=== PATIENT | male | born 1935 | race Caucasian/White ===

== ENCOUNTER → 2016-09-27 10:18 | Outpatient (CLI) | payer MEDICARE, BC ==
[2014-12-11 08:38] VITALS: BMI 30.7
[~2016-09-27 10:18] MED LIST: ACTOS15 MG PO; ADVAIR 250/501 DISK INH; CALTRATE 600 M600 M1 PO; EXELON1 PATCH .1 TRANSDERM; FLAGYL500 MG PO; FLORAJEN3 CAPS460 MG PO; HYTRIN5 MG PO; IPRAT-ALBUT 0.5-3 ML INH; LEVAQUIN750 MG PO; MOBIC7.5 MG PO; OMEGA-3100 MG; PAXIL20 MG PO; PREDNISONE10 MG PO; PRINIVIL20 MG PO; PROTONIX40 MG PO; ZOCOR40 MG PO
== END | disposition home or self-care (01) ==
LOC: D.CT 10:18
DX: F03.90 Unspecified dementia, unspecified severity, without behavioral disturbance, psychotic disturbance, mood disturbance, and anxiety (principal)

== ENCOUNTER 2016-11-11 19:47 | Inpatient (IN) | payer MEDICARE, BC ==
[~2016-11-11] VITALS: Ht 180.3 cm; Wt 90.9 kg
[~2016-11-11 19:47] MED LIST changes: -ADVAIR 250/501 DISK INH; -FLAGYL500 MG PO; -FLORAJEN3 CAPS460 MG PO; -IPRAT-ALBUT 0.5-3 ML INH; -LEVAQUIN750 MG PO; -PREDNISONE10 MG PO; -PROTONIX40 MG PO
[2016-11-11 21:24] LABS: ALBUMIN 3.7 g/dL (3.4-5.0); ALKALINE PHOSPHATASE 64 U/L (46-116); ALT (SGPT) 20 U/L (10-68); AMYLASE - SERUM 28 U/L (25-115); BILIRUBIN - TOTAL 0.57 mg/dL (0.2-1.3); CALC OSMOLALITY 280 mosm/kg (275-300); CALCIUM 8.9 mg/dL (8.5-10.1); CARBON DIOXIDE 24.8 mmol/L (21.0-32.0); CHLORIDE - SERUM 102 mmol/L (98-107); LIPASE 113 U/L (73-393); POTASSIUM - SERUM 3.7 mmol/L (3.5-5.1); SODIUM 139 mmol/L (136-145); UREA NITROGEN 9 mg/dL (7-18); eGFR NON AFRICAN AMERICAN 76 mL/min (90-120)
[2016-11-11 21:25] LABS: GLUCOSE 175 mg/dL (74-106)
[2016-11-11 21:31] LABS: BASOPHILS 0.1 % (0.0-2.0); EOSINOPHILS 0.1 % (0-7); HEMATOCRIT 39.7 % (42.0-54.0); HEMOGLOBIN 13.2 g/dL (13.5-17.5); IMMATURE GRANULOCYTES 0.2 % (0-5); LYMPHOCYTES 5.8 % (15-50); MCH 29.5 pg (26.0-34.0); MCHC 33.2 g/dL (31.0-37.0); MCV 88.8 fL (80.0-100.0); MEAN PLATELET VOLUME 9.5 fL (7.4-10.4); MONOCYTES 5.4 % (2-11); NEUTROPHILS 88.4 % (40-80); PLATELET COUNT 119 10x3/uL (130-400); RBC 4.47 10x6/uL (4.20-6.10); RDW 13.7 % (11.5-14.5); WBC 8.9 10x3/uL (4.8-10.8)
[2016-11-12] VITALS (7 sets, daily range): BP systolic 112–146; BP diastolic 52–70; Ht 180.3 cm; Wt 90.9 kg
--- NOTE | 2016-11-12 01:22 | NUR ---
PT RECEIVED FROM ER. PT SITTING UP IN BED IN ROOM. PT IS ALERT AND ORIENTED TO PERSON ONLY. UNABLE TO ANSWER QUESTIONS FOR ADMISSION HISTORY D/T CONFUSION. ANSWERS QUESTIONS APPROPRIATELY. DENIES PAIN RIGHT NOW. ORIENTED TO ROOM AND USE OF CALL LIGHT. BED LOW, CALL LIGHT IN REACH.
--- NOTE | 2016-11-12 03:22 | NUR ---
PT RESTING IN BED WITH EYES CLOSED. NO S/S OF DISTRESS NOTED. AROUSES TO VERBAL STIMULI. CALL LIGHT AND FLUIDS IN REACH.
--- NOTE | 2016-11-12 04:59 | NUR ---
UPON ENTERING PT'S ROOM, OBSERVED IV OUT OF HAND ON BED WITH BLOOD OVER HAND. NO ACTIVE BLEEDING NOTED AT THIS TIME. PT ASSISTED IN CLEANING. PT STATES, "I JUST STARTED BLEEDING. WHAT HAPPENED?" EXPLAINED TO PT THAT IV CAME OUT. PT STATES, "OH, IT DID?" IV RESTARTED IN RIGHT FOREARM, IV PATENT. PT DENIES NEEDS AT THIS TIME. CALL LIGHT AND H20 IN REACH. BED IN LOW POSITION. SIDE RAILS UP X2.
--- NOTE | 2016-11-12 10:00 | NUR ---
Received patient up in room, with IV disconnected. Oriented to self only. Isolation precautions maintained. Attempted reorientation, Instructed on importance of maintaining IV access, No evidence of reorientation.
--- NOTE | 2016-11-12 12:00 | NUR ---
Patient has pulled on and again reconnected IV, IV is not patent, swelling assessed to right arm. IV removed, warm wash cloth to arm and elevated on pillow. Daughter and son in law present.
--- NOTE | 2016-11-12 18:45 | NUR ---
SCD HOSE INITIATED, INSTRUCTED PATIENT AND FAMILY TO CALL FOR ASSIST UP TO BATHROOM. TELEMETRY CALLED REGARDING NEED FOR INSTRUMENT MECHANIC.
[2016-11-12 21:57] LABS: % SATURATION 5 % (15-55); IRON 13 ug/dl (35-150); TOTAL IRON BIND CAPACITY 219 ug/dl (260-445); UNSAT IRON BIND CAPACITY 206 ug/dl (150-375)
--- NOTE | 2016-11-13 01:07 | NUR ---
ASSESSED AT THE BEGINNING OF THE SHIFT. PT IS ALERT AND CONFUSED BUT CAN TELL YOU WHAT HE WANTS OR NEEDS. THERE IS A BELGICA MAT ON THE BED AND WE ARE ASSISTING HIM TO THE BATHROOM. HIS DAUGHTER AND GRANDDAUGHTER WERE BOTH VISIONG UNTIL ABOUT 2100. AT THIS TIME THEY LEFT ASKING THAT WE NOT WAKE HIM FOR THINGS IF HE IS A SLEEP. WE ADVISED THEM WE WOULD NOT BUT SOMETIMES IT WAS NEEDED. HE TOOK HIS HS MEDS AND IS KEEPING HIS TELEMETRY IN PLACE FOR NOW. THE BED IS LOW, RAILS UP X'S 2 WITH THE CALL LIGHT AT HAND.
[2016-11-13 04:00] VITALS: BP 126/55; BP 145/68; BP 148/72
[2016-11-13 06:57] LABS: BASOPHILS 0.3 % (0.0-2.0); EOSINOPHILS 0.3 % (0-7); HEMATOCRIT 33.5 % (42.0-54.0); HEMOGLOBIN 10.9 g/dL (13.5-17.5); IMMATURE GRANULOCYTES 0.2 % (0-5); LYMPHOCYTES 17.7 % (15-50); MCH 28.8 pg (26.0-34.0); MCHC 32.5 g/dL (31.0-37.0); MCV 88.4 fL (80.0-100.0); MEAN PLATELET VOLUME 9.4 fL (7.4-10.4); MONOCYTES 5.8 % (2-11); NEUTROPHILS 75.7 % (40-80); PLATELET COUNT 108 10x3/uL (130-400); RBC 3.79 10x6/uL (4.20-6.10); RDW 14.1 % (11.5-14.5)
[2016-11-13 06:58] LABS: WBC 5.9 10x3/uL (4.8-10.8)
--- NOTE | 2016-11-13 07:00 | NUR ---
REPORT RECIEVED ASSUMED CARE. PATIENT IN BED WITH IV INTACT. NO COMPLAINTS AT THIS TIME. CALL LIGHT WITHIN REACH.
[2016-11-13 07:25] LABS: ALKALINE PHOSPHATASE 46 U/L (46-116); ALT (SGPT) 16 U/L (10-68); BILIRUBIN - TOTAL 0.45 mg/dL (0.2-1.3); CALCIUM 8.3 mg/dL (8.5-10.1); CARBON DIOXIDE 24.1 mmol/L (21.0-32.0); CHLORIDE - SERUM 105 mmol/L (98-107); CREATININE - SERUM 0.9 mg/dL (0.6-1.3); POTASSIUM - SERUM 3.3 mmol/L (3.5-5.1); PROTEIN - SERUM 6.4 g/dL (6.4-8.2); SODIUM 138 mmol/L (136-145); UREA NITROGEN 9 mg/dL (7-18); eGFR NON AFRICAN AMERICAN 86 mL/min (90-120)
[2016-11-13 07:28] LABS: CALC OSMOLALITY 274 mosm/kg (275-300); GLUCOSE 99 mg/dL (74-106)
[2016-11-13 09:00] VITALS: BP 145/72
--- NOTE | 2016-11-13 10:30 | NUR ---
PATIENT UP IN ROOM AND PULLED IV OUT. CATH TIP INTACT. EXPLAINED TO PATIENT HE IS NOT ALLOWED TO GET UP WITH NO ASSISTANCE. PATIENT VERBALIZED UNDERSTANDING. BED ALARM ON. CALL LIGHT WITHIN REACH.
--- NOTE | 2016-11-13 11:00 | NUR ---
NEW IV STARTED IN RIGHT HAND. 20 G. X 1 STICK. TOLERATED WITH SMALL AMOUNT OF PAIN. ABX AND SALINE STARTED. CALL LIGHT WITHIN REACH.
--- NOTE | 2016-11-13 14:30 | NUR ---
PATIENT UP AND PULLED IV OUT AGAIN IN ROOM. PATIENT ASSISTED BACK TO BED AND CLEANED UP. EXPLAINED TO PATIENT HE IS NOT ALLOWED TO GET UP WITHOUT ASSIST. BED ALARM TURNED ON AGAIN. CALL LIGHT WITHIN REACH.
--- NOTE | 2016-11-13 15:42 | NUR ---
PATIENT IN BED WITH NO COMPLAINTS. FAMILY AT BEDSIDE. CALL LIGHT WITHIN REACH.
[2016-11-13 16:34] VITALS: BP 141/72
--- NOTE | 2016-11-13 18:05 | NUR ---
PATIENT IV RESTARTED IN RIGHT ARM AT THIS TIME. 1 STICK 22G. SMALL AMOUNT OF PAIN. BED ALARM ON. CALL LIGHT WITHIN REACH.
--- NOTE | 2016-11-13 19:29 | NUR ---
PAGED DR. TURK OF PATIENTS + BLOOD CULTURE. WAITING CALL BACK. ALSO NOTIFIED NIGHT NURSE ILDEFONSO IN CASE OF NO CALL BACK BEFORE I LEAVE. PATIENT IN BED WITH NO COMPLAINTS. CALL LIGHT WITHIN REACH.
--- NOTE | 2016-11-13 19:40 | NUR ---
NEW ORDERS RECIEVED FOR POSITIVE BLOOD CULTURES
--- NOTE | 2016-11-13 19:45 | NUR ---
RECIEVED SHIFT REPORT. PT IS LYING IN BED. PT IS ALERT AND ORIENTED TO SELF AND SITUATION AT THIS TIME. IV IS PATENT AND FLUIDS ARE RUNNING PER ORDER. ISOLATION PRECAUTIONS IN PLACE. PT IS AMBULATORY WITH ASSISTANCE. PT DENIES ANY PAIN AT THIS TIME. SCD'S ARE OFF AT THIS TIME. NO NEEDS ARE VERBALIZED AT THIS TIME. FAMILY IS AT BEDSIDE. WILL CONTINUE TO MONITOR. SIDE RAILS ARE UP X 2. BED IS IN LOWEST POSITION. BELGICA MAT IS ON FOR SAFETY. CALL LIGHT IS WITHIN REACH.
--- NOTE | 2016-11-13 22:19 | NUR ---
SHIFT ASSESSMENT COMPLETED. NIGHT MEDS GIVEN WITH NO PROBLEMS. NO NEEDS ARE VOICED. WILL MONITOR. SIDE RAILS X 2. BED LOW. BELGICA ON. CALL LIGHT IN REACH.
[2016-11-13 23:13] VITALS: BP 171/75
[2016-11-14 04:00] VITALS: BP 164/55
[2016-11-14 05:33] LABS: BASOPHILS 0.5 % (0.0-2.0); EOSINOPHILS 0 % (0-7); HEMOGLOBIN 11.6 g/dL (13.5-17.5); LYMPHOCYTES 14.4 % (15-50); MCH 29.2 pg (26.0-34.0); MCHC 33.1 g/dL (31.0-37.0); MCV 88.2 fL (80.0-100.0); MEAN PLATELET VOLUME 9.9 fL (7.4-10.4); NEUTROPHILS 83.1 % (40-80); PLATELET COUNT 131 10x3/uL (130-400); RBC 3.97 10x6/uL (4.20-6.10); RDW 13.9 % (11.5-14.5)
[2016-11-14 05:52] LABS: ALKALINE PHOSPHATASE 49 U/L (46-116); ALT (SGPT) 16 U/L (10-68); BILIRUBIN - TOTAL 0.35 mg/dL (0.2-1.3); CALC OSMOLALITY 285 mosm/kg (275-300); CALCIUM 8.4 mg/dL (8.5-10.1); CARBON DIOXIDE 24.6 mmol/L (21.0-32.0); CHLORIDE - SERUM 106 mmol/L (98-107); CREATININE - SERUM 0.9 mg/dL (0.6-1.3); POTASSIUM - SERUM 3.5 mmol/L (3.5-5.1); PROTEIN - SERUM 6.4 g/dL (6.4-8.2); SODIUM 142 mmol/L (136-145); UREA NITROGEN 8 mg/dL (7-18); eGFR NON AFRICAN AMERICAN 86 mL/min (90-120)
[2016-11-14 05:55] LABS: GLUCOSE 185 mg/dL (74-106)
--- NOTE | 2016-11-14 08:26 | NUR ---
AWAKE AND ALERT. ORIENTED X3. NO C/O AT THIS TIME. REPORTS BEING VERY BORED HERE. LUNGS HAVE ADVANTAGOUS SOUNDS IN BILATERAL LOWER LOBES. REPORTS OCCASSIONAL DRY COUGH. SKIN IS INTACT WITHOUT REDNESS. IV TO RIGHT FOREARM PATENT WITHOUT REDNESS AT INSERTION SITE. SCD'S OFF AT THIS TIME. DENIES NEEDS.
[2016-11-14 08:37] VITALS: BP 169/85
--- NOTE | 2016-11-14 09:30 | NUR ---
PULLED IV OUT WITH CATHETER INTACT. RESITED TO LEFT WRIST AFTER 2 ATTEMPTS WITH 22G. PATIENT CONTINUES CONFUSED. ATTEMPTS TO REORIENT WITHOUT SUCCESS
[2016-11-14 12:12] VITALS: BP 164/79
--- NOTE | 2016-11-14 12:15 | NUR ---
LUNCH SERVED IN ROOM. CONTINUES VERY CONFUSED AND SOMEWHAT AGITATED.
--- NOTE | 2016-11-14 14:00 | NUR ---
FAMILY HERE. PATIENT MUCH CALMER AT THIS TIME BUT STILL CONFUSSED.
--- NOTE | 2016-11-14 16:30 | NUR ---
SITTING UP ON BEDSIDE. NO C/O AT THIS TIME. DENIES NEEDS. VERY CONGENIAL AT THIS TIME. REMAINS SLIGHTLY CONFUSED.
--- NOTE | 2016-11-14 16:54 | NUR ---
Patient Name: AVE CONTRERAS Admission Status: ER Accout number: [id number] Admission Date: 11-11-2016 : 1935 Admission Diagnosis: Attending: MARCO Current LOS: 3 Anticipated DC Date: 11-17-2016 Planned Disposition: Home Primary Insurance: MEDICARE A & B Discharge Planning Comments: CM MET WITH FAMILY DAUGHTER (KIMBERLY) AND GRANDDAUGHTER (MARTHA) REGARDING D/C NEEDS AND PLANS FOR PATIENT. DAUGHTER STATED HE LIVES WITH HIS (FRED) AND THEIR HOME IS SAFE. PATIENT HAS A RAMP TO ENTER THEIR HOME AND NO STAIRS INSIDE. PATIENTS PCP IS DR. WOOD AND PHARMACY IS [facility] [address]. PATIENTS OR DAUGHTER TAKES CARE OF HIS MEDS. PATIENT HAS DEMENTIA AND [facility]ES [facility] 4 DAYS A WEEK. PATIENT NEEDS HELP AT TIMES BATHING AND DRESSING. PATIENT HAS A GLUCOMETER, CANE, WALKER, SHOWER CHAIR, AND WHEELCHAIR IF NEEDED. PATIENTS FAMILY DENIES THE NEED FOR HOME HEALTH BUT WANTS HOUSE CALLS. CM WILL CONTINUE TO FOLLOW PATIENT WITH D/C NEEDS AND PLANS. CALL DAUGHTER OR GRANDDAUGHTER WITH INFORMATION- NOT HIS . FAMILY STATES SHE HAS COPD AND GETS REALLY NERVOUS AND HAS TROUBLE BREATHING WHEN UPSET. PCP DR. NINA REYES [facility]- [phone] KIMBERLY (DAUGHTER) CALL [facility] [phone] MARTHA (GRANDDAUGHTER) [phone] Blow Mold Technician: Calista Alvarez Is the patient Alert and Oriented? No 0 * How many steps to enter\exit or inside your home? RAMP 0 * PCP DR. WOOD 0 * Pharmacy [facility] [address] 0 * Preadmission Environment Home with Family 0 * ADLs Partial Dependent 0 * Partial ADLs (Assistance needed) Bathing Dressing Medication Management 0 * Equipment Cane Glucometer Shower Chair Walker 0 * List name and contact numbers for known caregivers / representatives who currently or will assist patient after discharge: KIMBERLY (DAUGHTER) [phone] CALL [facility] MARTHA (GRAND DAUGHTER) [phone] CALL FRED () DO NOT CALL [facility] PER DAUGHTER SHE GETS VERY UPSET AND HAS COPD 0 * Community resources currently utilized Other 0 * Please name any agencies selected above. [facility] 0 * Additional services required to return to the preadmission environment? Yes 0 * Can the patient safely return to the preadmission environment? Yes 0 * Has this patient been hospitalized within the prior 30 days at any hospital? No 0 Grand Total: 0
--- NOTE | 2016-11-14 18:54 | NUR ---
UP IN SHOWER AT THIS TIME AFTER INCONTINENT EPISODE OF STOOL. FAMILY IN ROOM. DENIES NEEDS.
--- NOTE | 2016-11-14 19:35 | NUR ---
RECIEVED SHIFT REPORT. PT IS LYING IN BED. PT IS ALERT BUT IS CONFUSED TO PLACE AND SITUATION. SCD'S OFF PER PT REQUEST. PT IS AMBULATORY WITH ASSISTANCE. IV IS PATENT BUT PT IS REFUSING TO HAVE FLUIDS HOOKED UP PER ORDER. PT DENIES ANY PAIN AT THIS TIME. NO NEEDS ARE VERBALIZED AT THIS TIME. VISITORS AT BEDSIDE. SIDE RAILS ARE UP X 2. BED IS IN LOWEST POSITION. BELGICA MAT IS ON FOR SAFETY. CALL LIGHT IS WITHIN REACH.
[2016-11-14 20:00] VITALS: BP 155/86
--- NOTE | 2016-11-14 20:32 | NUR ---
SHIFT ASSESSMENT COMPLETED. NIGHT MEDS GIVEN PER ORDER. PT AGREED TO ALLOW ME TO CHIEF RADIATION THERAPIST HIS IV FOR HIS ANTIBIOTIC BUT STATED "I WILL TAKE IT OFF WHEN IT IS DONE, I KNOW IT DOESNT TAKE THAT LONG." NO FURTHER NEEDS AT THIS TIME. WILL MONITOR. SIDE RAILS X 2. BED LOW. BELGICA MAT ON. CALL LIGHT IN REACH.
[2016-11-15] VITALS: BP 98/45
[2016-11-15 04:00] VITALS: BP 121/88
[2016-11-15 06:34] LABS: BASOPHILS 0.1 % (0.0-2.0); EOSINOPHILS 0 % (0-7); HEMATOCRIT 36.2 % (42.0-54.0); HEMOGLOBIN 11.8 g/dL (13.5-17.5); IMMATURE GRANULOCYTES 0.2 % (0-5); MCH 28.6 pg (26.0-34.0); MCHC 32.6 g/dL (31.0-37.0); MCV 87.9 fL (80.0-100.0); MEAN PLATELET VOLUME 10.1 fL (7.4-10.4); MONOCYTES 5.7 % (2-11); RBC 4.12 10x6/uL (4.20-6.10); RDW 13.9 % (11.5-14.5)
[2016-11-15 06:43] LABS: PLATELET COUNT 165 10x3/uL (130-400); WBC 9.3 10x3/uL (4.8-10.8)
[2016-11-15 07:08] LABS: ALBUMIN 3.3 g/dL (3.4-5.0); ALKALINE PHOSPHATASE 53 U/L (46-116); ALT (SGPT) 18 U/L (10-68); BILIRUBIN - TOTAL 0.32 mg/dL (0.2-1.3); CALCIUM 8.8 mg/dL (8.5-10.1); CARBON DIOXIDE 25.7 mmol/L (21.0-32.0); CHLORIDE - SERUM 104 mmol/L (98-107); GLUCOSE 139 mg/dL (74-106); POTASSIUM - SERUM 3.5 mmol/L (3.5-5.1); PROTEIN - SERUM 7.2 g/dL (6.4-8.2); SODIUM 139 mmol/L (136-145); eGFR NON AFRICAN AMERICAN 76 mL/min (90-120)
[2016-11-15 07:10] LABS: CALC OSMOLALITY 280 mosm/kg (275-300); UREA NITROGEN 14 mg/dL (7-18)
[2016-11-15 08:20] VITALS: BP 163/85
[2016-11-15 12:30] VITALS: BP 130/73
--- NOTE | 2016-11-15 14:48 | NUR ---
NUTRITION MONITORING & EVAL CHART REVIEWED. PT OOR. TOLERATING MECH SOFT ADA DIET, 100% INTAKE PAST TWO MEALS. PT REMAINS IN ISOLATION. WILL CONTINUE TO PROVIDE DIET, MONITOR PT PROGRESS. RD FOLLOWING
[2016-11-15 16:36] VITALS: BP 157/70
--- NOTE | 2016-11-15 18:40 | NUR ---
STILL SITTING IN ROOM WITH . MUCH CALMER AT THIS TIME. NO CHANGES NOTED. DENIES NEEDS.
--- NOTE | 2016-11-15 19:40 | NUR ---
RECIEVED SHIFT REPORT. PT IS IN 'S ROOM AT THIS TIME. PT IS ALERT BUT CONFUSED AT THIS TIME. PT DENIES ANY PAIN AT THIS TIME. PT IS AMBULATORY WITH ASSISTANCE. FAMILY IN ROOM WITH AT THIS TIME WELL. PT REQUESTING CUP OF COFFE WHICH WAS PROVIDED. NO FURTHER NEEDS AT THIS TIME. WILL MONITOR.
[2016-11-15 20:00] VITALS: BP 166/83
--- NOTE | 2016-11-15 22:33 | NUR ---
SHIFT ASSESSMENT COMPLETED. NIGHT MEDS GIVEN WITH NO PROBLEMS. FAMILY AT BEDSIDE. WILL MONITOR. SIDE RAILS X 2. BED LOW. BELGICA MAT ON. CALL LIGHT IN REACH.
[2016-11-16 06:36] LABS: ALBUMIN 2.9 g/dL (3.4-5.0); ALKALINE PHOSPHATASE 47 U/L (46-116); ALT (SGPT) 19 U/L (10-68); CALC OSMOLALITY 284 mosm/kg (275-300); CALCIUM 8.4 mg/dL (8.5-10.1); CARBON DIOXIDE 29.2 mmol/L (21.0-32.0); CHLORIDE - SERUM 105 mmol/L (98-107); CREATININE - SERUM 0.9 mg/dL (0.6-1.3); GLUCOSE 159 mg/dL (74-106); SODIUM 141 mmol/L (136-145); UREA NITROGEN 16 mg/dL (7-18); eGFR NON AFRICAN AMERICAN 86 mL/min (90-120)
[2016-11-16 06:37] LABS: POTASSIUM - SERUM 4.4 mmol/L (3.5-5.1)
--- NOTE | 2016-11-16 07:00 | NUR ---
REPORT RECIEVED ASSUMED CARE. PATIENT IN BED WITH IV INTACT. NO COMPLAINTS AT THIS TIME. CALL LIGHT WITHIN REACH.
[2016-11-16 07:37] LABS: BASOPHILS 0.1 % (0.0-2.0); EOSINOPHILS 0.1 % (0-7); HEMATOCRIT 34.1 % (42.0-54.0); IMMATURE GRANULOCYTES 0.5 % (0-5); LYMPHOCYTES 11.1 % (15-50); MCH 28.8 pg (26.0-34.0); MCHC 32.3 g/dL (31.0-37.0); MCV 89.3 fL (80.0-100.0); MEAN PLATELET VOLUME 10.4 fL (7.4-10.4); MONOCYTES 7.8 % (2-11); NEUTROPHILS 80.4 % (40-80); PLATELET COUNT 172 10x3/uL (130-400); RBC 3.82 10x6/uL (4.20-6.10); RDW 14.2 % (11.5-14.5); WBC 8.2 10x3/uL (4.8-10.8)
[2016-11-16 08:40] VITALS: BP 153/81
[2016-11-16 13:31] VITALS: BP 138/80
[2016-11-16 17:19] VITALS: BP 135/70
--- NOTE | 2016-11-16 18:55 | NUR ---
PATIENT IN WIFES ROOM. NO COMPLAINTS AT THIS TIME. IV INTACT. CALL LIGHT WITHIN REACH. NO PROBLEMS AT THIS TIME.
--- NOTE | 2016-11-16 20:57 | NUR ---
AWAKE WITH CONFUSION NOTED. FAMILY AT BEDSIDE.BED ALARM ON. SL TO LEFT ARM INTACCT WITHOUT REDNESS OR EDEMA NOTE. CL IN REACH.
[2016-11-16 21:35] VITALS: BP 165/85
--- NOTE | 2016-11-17 03:25 | NUR ---
LYING QUEITLY. NO DISTRESS NOTED. CL IN REACH.
--- NOTE | 2016-11-17 04:37 | NUR ---
PATIENT IN ROOM 2224 WITH HIS . NO VISIBLE SIGNS OF DISTRESS. BED IN LOWEST POSITION AND CALL LIGHT WITHIN REACH.
--- NOTE | 2016-11-17 05:53 | NUR ---
EYES CLOSED RESP EVEN AND UNLABORED. NO CHANGE IN ASSESSMENT.
[2016-11-17 06:04] LABS: BASOPHILS 0.1 % (0.0-2.0); EOSINOPHILS 0 % (0-7); HEMATOCRIT 35.7 % (42.0-54.0); HEMOGLOBIN 11.5 g/dL (13.5-17.5); IMMATURE GRANULOCYTES 0.7 % (0-5); LYMPHOCYTES 11.1 % (15-50); MCH 28.5 pg (26.0-34.0); MCHC 32.2 g/dL (31.0-37.0); MCV 88.6 fL (80.0-100.0); MEAN PLATELET VOLUME 10.4 fL (7.4-10.4); NEUTROPHILS 81.1 % (40-80); PLATELET COUNT 175 10x3/uL (130-400); RBC 4.03 10x6/uL (4.20-6.10); RDW 14.2 % (11.5-14.5); WBC 8.5 10x3/uL (4.8-10.8)
[2016-11-17 06:31] LABS: ALBUMIN 2.9 g/dL (3.4-5.0); ALKALINE PHOSPHATASE 50 U/L (46-116); ALT (SGPT) 21 U/L (10-68); CALC OSMOLALITY 280 mosm/kg (275-300); CALCIUM 8.3 mg/dL (8.5-10.1); CARBON DIOXIDE 27.9 mmol/L (21.0-32.0); CHLORIDE - SERUM 103 mmol/L (98-107); GLUCOSE 170 mg/dL (74-106); POTASSIUM - SERUM 3.8 mmol/L (3.5-5.1); PROTEIN - SERUM 6.3 g/dL (6.4-8.2); SODIUM 138 mmol/L (136-145); UREA NITROGEN 16 mg/dL (7-18); eGFR NON AFRICAN AMERICAN 76 mL/min (90-120)
--- NOTE | 2016-11-17 07:00 | NUR ---
REPORT RECIEVED ASSUMED CARE. PATIENT IN WIFES ROOM IN 2223 AT THIS TIME. NO COMPLAINTS. IV INTACT. CALL LIGHT WITHIN REACH.
[2016-11-17 08:41] VITALS: BP 126/72
[2016-11-17 11:42] VITALS: BP 122/101
--- NOTE | 2016-11-17 11:50 | NUR ---
PATIENT PULLED IV OUT AT THIS TIME. CATH TIP INTACT. SITTING UP IN CHAIR. CALL LIGHT WITHIN REACH.
[2016-11-17] MEDS ORDERED: FLAGYL500 MG PO (12:32)
[2016-11-17] MEDS ORDERED: FLORAJEN3 CAPS460 MG PO (12:33)
[2016-11-17] MEDS ORDERED: PROTONIX40 MG PO (12:34)
[2016-11-17] MEDS ORDERED: IPRAT-ALBUT 0.5-3 ML INH (12:34)
[2016-11-17] MEDS ORDERED: PREDNISONE10 MG PO (12:35)
[2016-11-17] MEDS ORDERED: LEVAQUIN750 MG PO (12:35)
[2016-11-17] MEDS ORDERED: ADVAIR 250/501 DISK INH (12:36)
--- NOTE | 2016-11-17 14:17 | NUR ---
CM REASSESSMENT NOTE: PATIENT IS DISCHARGING HOME TODAY - FAMILY DRIVING. A NEBULIZER HAS BEEN ORDERED AND IS BEING DELIVERED TO ROOM BEFORE DISCHARGE FROM [facility]. [facility] WITH [facility] (VAMSHI FORM SIGNED) AND HOUSE CALLS.
[2016-11-17 15:34] VITALS: BP 126/85
--- NOTE | 2016-11-17 16:50 | NUR ---
PATIENT AND FAMILY RECIEVED DC INSTRUCTIONS. VERBALIZED UNDERSTANDING. NO QUESTIONS AT THIS TIME. AWAITING TRANSPORTATION FOR DC.
--- NOTE | 2016-11-25 13:49 | CN ---
PATIENT NAME:AVE CONTRERAS MEDICAL RECORD: [id number] : 37 LOCATION:D.MS [id number] ADMIT DATE: 11/11/16 ACCOUNT: [id number] CONSULTING PHYSICIAN: BERNA OGDEN MD REFERRING PHYSICIAN: VISHAL DE LA FUENTE MD DATE OF CONSULTATION: 11/13/2016 CONSULT REQUESTING PHYSICIAN: Dr. Vishal De La Fuente. REASON FOR CONSULTATION: 1. Pneumonia. 2. Chronic obstructive pulmonary disease exacerbation. HISTORY OF PRESENT ILLNESS: Mr. Contreras is a 80-year-old gentleman who has a history of dementia. The history was taken with the help of his doctor. According to his doctor, he has pneumonia 4-6 weeks ago and he was treated by Dr. Wood. For the last few days, the patient had diarrhea and when the patient was taking shower yesterday, the patient collapsed, brought into the hospital by ambulance. He has a fever of about 100 yesterday. Now, he is doing better, but he is still coughing and wheezing. REVIEW OF SYSTEMS: The details not obtainable. PAST MEDICAL HISTORY: 1. Dementia. 2. Diabetes mellitus. 3. History of pneumonia. 4. History of diarrhea. 5. Coronary artery disease status post stent placement. PAST SURGICAL HISTORY: 1. He has had cataract surgery. 2. Appendectomy. 3. Left knee replacement. 4. Carotid endarterectomy. 5. CABG. ALLERGIES: There are no known drug allergies. PRESENT MEDICATIONS: He is on Zithromax IV, Rocephin IV Flagyl IV. His other medication is reviewed. PERSONAL AND SOCIAL HISTORY: The patient is an ex-smoker. He is a nondrinker. FAMILY HISTORY: Noncontributory. PHYSICAL EXAMINATION: GENERAL: Now, the patient is lying comfortably. He is not in acute distress. VITAL SIGNS: The blood pressure is 141/72, pulse is 71, respirations 21, temperature 98.8 and SpO2 is 96% on room air. HEENT: Conjunctivae pink, sclerae nonicteric. NECK: Supple. No JVD. CHEST: There is prolonged expiration with wheezing. There are crackles at the left base. HEART: Rhythm regular, normal sound, no murmur. CONSULT REPORT [id number] AVE CONTRERAS ABDOMEN: Soft. Bowel sounds present. No hepatosplenomegaly. RECTAL: Deferred. EXTREMITIES: No cyanosis, no clubbing, no pedal edema. SKIN: Warm, normal turgor. CENTRAL NERVOUS SYSTEM: The patient is awake and alert, but he is confused. LABORATORY DATA: CBC: The WBC is 5.9, hemoglobin 10.9, hematocrit 33.5, the platelet count 108. Chemistry: Sodium 138, potassium 3.3, BUN is 9, creatinine 0.9. IMPRESSION: 1. Pneumonia, left lower, most likely community-acquired pneumonia. 2. Acute exacerbation of chronic obstructive pulmonary disease. 3. Clostridium difficile colitis. 4. Syncopal episode, possible secondary to dehydration with associated nausea, vomiting, and diarrhea. 5. Anemia. 6. History of coronary artery disease. 7. Dementia of severe degree. RECOMMENDATION: 1. Continue Zithromax and Rocephin. Continue with Flagyl IV. 2. Start methylprednisolone IV, albuterol/ipratropium nebulizer, Brovana and budesonide nebulizer. 3. Follow up labs and x-ray. Dr. De La Fuente, once again thank you for involving me in the care of Mr. Contreras. TRANSINT:[id number] Voice Confirmation ID: [id number] DOCUMENT ID: [id number] BERNA OGDEN MD at 1349 CC: LYNDSEY WOOD MD [id number] DICTATION DATE: 11/13/16 1651 LENS AND FRAMES PRESCRIPTION CLERK: 11/13/162005 DIS IN 11/17/[address] [facility] [address] [place] [address]
--- NOTE | 2016-11-29 14:37 | EC ---
PATIENT:AVE CONTRERAS DATE OF SERVICE: 11/11/16 SEX: M MEDICAL RECORD: [id number] DATE OF : [birth year] LOCATION:[facility] AGE OF PATIENT: 80 ADMISSION DATE: 11/11/16 REFERRING PHYSICIAN: INTERPRETING PHYSICIAN: DUY JUAREZ MD ECHOCARDIOGRAM REPORT ECHO CHARGES 4 ECHO COMPLETE CLINICAL DIAGNOSIS: SYNCOPE ECHOCARDIOGRAPHIC MEASUREMENTS (adult normal given) AC root (d.<3.7cm) 3.5 LV Septum d (<1.2 cm> 1.7 Valve Excursion 2.5 LV Septum (systole) 2.4 Left Atria (s.<4.0cm> 4.3 LVPW d(<1.2cm) 1.4 RV (d.<2.3cm) 2.6 LVPW (sytole) 2.2 LV diastole(<5.6CM) 4.5 MV E-F(>70mm/sec) LV systole 2.8 LVOT Diameter 2.2 MV exc.(>10mm) Est.ejection fraction (50-75%) Pericardial Effusion N DOPPLER: LVIT A 112 E 114 LA RVSP 21.0 LVOT 96.0 AOP1/2T Asc. Ao 112 RVOT 79.0 RA PA 88.0 AV Gradient Peak 5.1 AV Mean 2.6 AV Area 3.7 MV Gradient Peak 4.6 MV Mean 1.8 MV Area COMMENTS: Cycling Instructor: Iván HURSTOE Charge Weigher:1 Dr. Juarez TAPE# PACS DATE OF SERVICE: 11/12/2016 Echocardiogram FINDINGS: 1. Left ventricular chamber size is within normal limits. Left ventricular systolic function is normal. Overall ejection fraction estimated at 50%. 2. Left atrium is enlarged at 4.3 cm. Right atrium and right ventricular chamber sizes are within normal limits. 3. Valvular structures have normal structure and motion. ECHOCARDIOGRAM REPORT [id number] AVE CONTRERAS 4. Doppler interrogation reveals mild mitral regurgitation. No other valvular insufficiency or stenosis. Pulmonary systolic pressure is normal estimated at 21 mmHg. 5. No evidence of pericardial effusion or left ventricular thrombus. TRANSINT:[id number] Voice Confirmation ID: [id number] DOCUMENT ID: [id number] 11/16/2016 Edited to correct date of service, [email or web address]. DUY JUAREZ MD at 1437 CC: [id number] DICTATION DATE: 11/13/16 1156 BARREL PLANER: 11/13/16 2221 DIS IN 11/17/16 [place] [id number] [place] [address]
== END 2016-11-17 18:43 | disposition home health service (06) | DRG 371 ==
LOC: D.ER 19:47 → D.MS 23:49 → D.SDCHOLD 11-12 00:28 → D.MS 11-12 01:08
PROVIDERS: Emergency Medicine; ADMIT Family Medicine Adult Medicine
DX: A04.7 Enterocolitis due to Clostridium difficile (principal); J18.9 Pneumonia, unspecified organism; J44.0 Chronic obstructive pulmonary disease with (acute) lower respiratory infection; J44.1 Chronic obstructive pulmonary disease with (acute) exacerbation; R55 Syncope and collapse; E11.65 Type 2 diabetes mellitus with hyperglycemia; D69.6 Thrombocytopenia, unspecified; D64.9 Anemia, unspecified; I25.10 Atherosclerotic heart disease of native coronary artery without angina pectoris; E78.5 Hyperlipidemia, unspecified; I10 Essential (primary) hypertension; I65.22 Occlusion and stenosis of left carotid artery

== ENCOUNTER → 2016-12-05 16:33 | Outpatient (CLI) | payer MEDICARE, BC ==
[2016-11-12 13:52] VITALS: BMI 25.8
[~2016-12-05 16:33] MED LIST changes: +ADVAIR 250/501 DISK INH; +FLAGYL500 MG PO; +FLORAJEN3 CAPS460 MG PO; +IPRAT-ALBUT 0.5-3 ML INH; +LEVAQUIN750 MG PO; +PREDNISONE10 MG PO; +PROTONIX40 MG PO
== END | disposition home or self-care (01) ==
LOC: D.LABREF 16:33
DX: A04.7 Enterocolitis due to Clostridium difficile (principal)

== ENCOUNTER 2017-02-10 03:53 | Emergency (ER) | payer MEDICARE, BC ==
[2016-11-12 13:52] VITALS: BMI 25.8
[2017-02-10 04:51] LABS: BASOPHILS 0.3 % (0-2); EOSINOPHILS 4.8 % (0-7); HEMATOCRIT 40.3 % (42.0-54.0); HEMOGLOBIN 13.1 g/dL (13.5-17.5); IMMATURE GRANULOCYTES 0.2 % (0-5); LYMPHOCYTES 29.5 % (15-50); MCH 29.6 pg (26.0-34.0); MCHC 32.5 g/dL (31.0-37.0); MEAN PLATELET VOLUME 9.5 fL (7.4-10.4); MONOCYTES 7.5 % (2-11); NEUTROPHILS 57.7 % (40-80); PLATELET COUNT 155 10x3/uL (130-400); RBC 4.43 10x6/uL (4.20-6.10); RDW 13.2 % (11.5-14.5)
[2017-02-10 05:07] LABS: ALBUMIN 3.3 g/dL (3.4-5.0); ALKALINE PHOSPHATASE 56 U/L (46-116); ALT (SGPT) 20 U/L (10-68); CALC OSMOLALITY 282 mosm/kg (275-300); CALCIUM 8.7 mg/dL (8.5-10.1); CARBON DIOXIDE 24.4 mmol/L (21.0-32.0); CHLORIDE - SERUM 108 mmol/L (98-107); CREATININE - SERUM 0.9 mg/dL (0.6-1.3); POTASSIUM - SERUM 3.6 mmol/L (3.5-5.1); PROTEIN - SERUM 6.3 g/dL (6.4-8.2); SODIUM 142 mmol/L (136-145); UREA NITROGEN 12 mg/dL (7-18); eGFR NON AFRICAN AMERICAN 86 mL/min (90-120)
[2017-02-10 05:08] LABS: GLUCOSE 105 mg/dL (74-106)
[2017-02-10 05:16] LABS: CREATINE KINASE 50 UL (21-232); MAGNESIUM - SERUM 1.9 mg/dL (1.8-2.4); PRO BNP 258 pg/mL (0-450); TROPONIN-I < 0.017 ng/mL (0.000-0.060)
== END 2017-02-10 07:45 | disposition home or self-care (01) ==
LOC: D.ER 03:53
PROVIDERS: Emergency Medicine
DX: M54.2 Cervicalgia (principal); S39.012A Strain of muscle, fascia and tendon of lower back, initial encounter; W19.XXXA Unspecified fall, initial encounter; F03.90 Unspecified dementia, unspecified severity, without behavioral disturbance, psychotic disturbance, mood disturbance, and anxiety; R42 Dizziness and giddiness; I10 Essential (primary) hypertension

== ENCOUNTER → 2017-04-06 10:01 | Outpatient (CLI) | payer MEDICARE, BC ==
[2016-11-12 13:52] VITALS: BMI 25.8
== END | disposition home or self-care (01) ==
LOC: D.RT 04-04 14:00 → D.RAD 04-04 15:15 → D.LAB 04-04 15:45 → D.RT 10:00
DX: J44.9 Chronic obstructive pulmonary disease, unspecified (principal)

== ENCOUNTER 2017-05-13 18:45 | Observation (INO) | payer MEDICARE, BC ==
[~2017-05-13] VITALS: Ht 180.3 cm; Wt 88.1 kg
[~2017-05-13 18:45] MED LIST changes: -OMEGA-3100 MG; +OMEGA-3100 MG PO
[2017-05-13 19:13] LABS: BASOPHILS 0.2 % (0-2); EOSINOPHILS 4.3 % (0-7); HEMATOCRIT 38.8 % (42.0-54.0); HEMOGLOBIN 12.9 g/dL (13.5-17.5); IMMATURE GRANULOCYTES 0.2 % (0-5); LYMPHOCYTES 34.9 % (15-50); MCHC 33.2 g/dL (31.0-37.0); MCV 90.2 fL (80.0-100.0); MEAN PLATELET VOLUME 9.2 fL (7.4-10.4); MONOCYTES 10.9 % (2-11); NEUTROPHILS 49.5 % (40-80); PLATELET COUNT 162 10x3/uL (130-400); RDW 13.5 % (11.5-14.5); WBC 6.5 10x3/uL (4.8-10.8)
[2017-05-13 19:28] LABS: ALBUMIN 3.4 g/dL (3.4-5.0); ALKALINE PHOSPHATASE 76 U/L (46-116); ALT (SGPT) 19 U/L (10-68); BILIRUBIN - TOTAL 0.38 mg/dL (0.2-1.3); CALC OSMOLALITY 282 mosm/kg (275-300); CALCIUM 8.9 mg/dL (8.5-10.1); CARBON DIOXIDE 25.6 mmol/L (21.0-32.0); CHLORIDE - SERUM 106 mmol/L (98-107); CREATININE - SERUM 1.2 mg/dL (0.6-1.3); GLUCOSE 110 mg/dL (74-106); POTASSIUM - SERUM 3.6 mmol/L (3.5-5.1); PROTEIN - SERUM 7.1 g/dL (6.4-8.2); SODIUM 141 mmol/L (136-145); UREA NITROGEN 14 mg/dL (7-18); eGFR NON AFRICAN AMERICAN 62 mL/min (90-120)
[2017-05-13 19:37] LABS: CHOL - HDL RATIO 3.6 ratio (2.3-4.9); CHOLESTEROL, TOTAL 179 mg/dL (0-200); CKMB 1.5 U/L (0.0-3.6); CREATINE KINASE 102 UL (21-232); HDL CHOLESTEROL 50 mg/dL (32-96); LDL CHOLESTEROL 116 mg/dL (0-100); LDL-HDL RATIO 2.3 ratio (1.5-3.5); TRIGLYCERIDE 68 mg/dL (30-200); TROPONIN-I < 0.017 ng/mL (0.000-0.060)
[2017-05-13 20:47] LABS: APPEARANCE CLEAR (CLEAR); BILIRUBIN NEGATIVE (NEGATIVE); COLOR DK YELLOW (YELLOW); GLUCOSE NEGATIVE (NEGATIVE); KETONE NEGATIVE (NEGATIVE); LEUKOCYTE ESTERASE NEGATIVE (NEGATIVE); NITRITE NEGATIVE (NEGATIVE); PROTEIN NEGATIVE (NEGATIVE); UROBILINOGEN NORMAL (NORMAL)
--- NOTE | 2017-05-13 22:15 | NUR ---
PT ARRIVES TO FLOOR VIA WC ACCOMPANIED BY NURSE. ASSISTED INTO BED. PLACED ON TELE, NSR ON MONITOR - HR 80'S. DENIES ANY C/O PAIN UPON ARRIVAL. PT IS CONFUSED TO PLACE AND SITUATION. STATES DOES NOT REMEMBER HAVING CHEST PAIN AND JUST WANTS TO GO HOME. PT BECOMING INCREASINGLY UPSET. CALL TO PT'S DAUGHTER KIMBERLY @ [phone]. PT'S DAUGHTER NOTIFIED OF PT'S CONFUSION AND PT JUST WANTING TO GO HOME. DAUGHTER SPEAKS WITH PT VIA PHONE AND CALMS HIM DOWN. ADMISSION ASSESSMENT COMPLETED. HISTORY OBTAINED FROM DAUGHTER PT IS A POOR HISTORIAN. WILL CONT TO MONITOR.
[2017-05-13 22:28] VITALS: Ht 180.3 cm; Wt 88.1 kg
--- NOTE | 2017-05-13 23:00 | NUR ---
PT PULLS TELE OFF AND REFUSES TO WEAR IT ANY LONGER. PT HAS ALSO REMOVED HIS IV AND REFUSES TO BE RESITED. PT REORIENTED TO HIS SITUATION AND WHERE HE IS AT AND TO HOW HE GOT HERE. ASSISTED BACK TO BED. WILL CONT TO MONITOR.
[2017-05-14] VITALS: BP 143/77
--- NOTE | 2017-05-14 01:30 | NUR ---
PT OUT TO NURSES STATION, CONFUSED TO PLACE AND SITUATION. PT ASSISTED TO SIT IN A CHAIR AT THE NURSES STATION AND TALKS WITH NURSES ABOUT WHERE HE IS AT AND WHY, VERBALIZES UNDERSTANDING. ASSISTED BACK TO BED.. WILL CONT TO MONITOR.
[2017-05-14 03:35] LABS: BASOPHILS 0.4 % (0-2); EOSINOPHILS 6.6 % (0-7); HEMOGLOBIN 12.3 g/dL (13.5-17.5); IMMATURE GRANULOCYTES 0.2 % (0-5); LYMPHOCYTES 34.2 % (15-50); MCHC 33.2 g/dL (31.0-37.0); MCV 90.2 fL (80.0-100.0); MEAN PLATELET VOLUME 9.4 fL (7.4-10.4); MONOCYTES 9.8 % (2-11); NEUTROPHILS 48.8 % (40-80); PLATELET COUNT 159 10x3/uL (130-400); RDW 13.3 % (11.5-14.5); WBC 5.6 10x3/uL (4.8-10.8)
[2017-05-14 04:00] VITALS: BP 135/79
[2017-05-14 04:08] LABS: CALC OSMOLALITY 283 mosm/kg (275-300); CALCIUM 8.5 mg/dL (8.5-10.1); CARBON DIOXIDE 27.6 mmol/L (21.0-32.0); CHLORIDE - SERUM 107 mmol/L (98-107); CKMB 1.6 U/L (0.0-3.6); CREATINE KINASE 92 UL (21-232); CREATININE - SERUM 1.2 mg/dL (0.6-1.3); GLUCOSE 100 mg/dL (74-106); POTASSIUM - SERUM 3.7 mmol/L (3.5-5.1); SODIUM 142 mmol/L (136-145); UREA NITROGEN 15 mg/dL (7-18); eGFR NON AFRICAN AMERICAN 62 mL/min (90-120)
[2017-05-14 04:09] LABS: TROPONIN-I < 0.017 ng/mL (0.000-0.060)
--- NOTE | 2017-05-14 07:31 | NUR ---
RECEIVED PT UP WALKING IN HALLWAY CONFUSED AND UNABLE TO REMEMBER INSTRUCTIONS PT REORIENTED TO PLACE TIME AND SITUATION PT HAS DEMENTIA SHORT TERM MEMORY DEFICITS
[2017-05-14 08:26] VITALS: BP 144/83
[2017-05-14 10:21] LABS: CKMB 1.8 U/L (0.0-3.6); CREATINE KINASE 102 UL (21-232)
[2017-05-14 10:22] LABS: TROPONIN-I < 0.017 ng/mL (0.000-0.060)
[2017-05-14] MEDS ORDERED: DESERYL100 MG PO (11:16)
[2017-05-14] MEDS ORDERED: ATIVAN0.5 MG PO (11:21)
[2017-05-14 11:58] VITALS: BP 175/76
[2017-05-14 15:56] VITALS: BP 102/50
[2017-05-14 20:00] VITALS: BP 106/61
[2017-05-15] VITALS: BP 87/46
[2017-05-15 12:00] VITALS: BP 114/51
--- NOTE | 2017-05-15 14:57 | NUR ---
CONFUSED. WON'T STAY IN ROOM. OFFER CHAIR IN [place] BY NURSES STATION. REFUSES TO STAY IN CHAIR. CALL RAFA HARRIS REQUESTING FOR FAMILY TO COME SIT WITH PATIENT. EXPLAIN TO KIMBERLY, PATIENT WILL NOT FOLLOW COMMANDS AND IS TRYING TO LEAVE TO WALK TO [facility] WHERE HIS IS. KIMBERLY STATE, "I WILL TRY TO CALL AROUND AND SEE WHERE AND WHAT FAMLY IS DOING." ATTEMPT TO CALM PATIENT BY TALKING OVER THE PHONE UNSUCCESSFUL. ENCOURAGE TO LAY DOWN IN BED TO MAKE TIME GO BY FASTER. THREE SIDERAILS UP. BELGICA MAT ON. BED ALARM ON. BED LOCKED AND LOW. DOOR OPEN IN VIEW OF NURSES STATION.
[2017-05-15 16:00] VITALS: BP 141/66
--- NOTE | 2017-05-15 18:12 | NUR ---
Patient Name: AVE CONTRERAS Admission Status: ER Accout number: [id number] Admission Date: 05-13-2017 : 1935 Admission Diagnosis: Attending: ANGEL GAMING Current LOS: 2 Anticipated DC Date: 05-16-2017 Planned Disposition: Inpatient Rehab Primary Insurance: MEDICARE A & B PLANNED EXTERNAL PROVIDER: [facility] Discharge Planning Comments: * Is the patient Alert and Oriented? Yes 0 * How many steps to enter\exit or inside your home? 5 0 * PCP UNKNOWN 0 * Pharmacy UNKNOWN 0 * Preadmission Environment Home with Family 0 * ADLs Partial Dependent 0 * Partial ADLs (Assistance needed) Medication Management 0 * Equipment Cane Walker 0 * Other Equipment NO MEDICAL EQUIPMENT PROVIDER PREFERENCE 0 * List name and contact numbers for known caregivers / representatives who currently or will assist patient after discharge: KIMBERLY CONTRERAS, DTR, FRED BEN, SPOUSE, 0 * Community resources currently utilized Other 0 * Please name any agencies selected above. [facility] PT CANNOT REMEMBER HOW OFTEN HE GOES. 0 * Additional services required to return to the preadmission environment? Yes * Can the patient safely return to the preadmission environment? No 0 * Has this patient been hospitalized within the prior 30 days at any hospital? No 0 CM SPOKE TO WHO REPORTS PT IS NOT SAFE TO GO HOME AND CANNOT CARE FOR HIMSELF AT HOME. CM MET WITH PT IN ROOM TO DISCUSS DISCHARGE PLANNING AND NEEDS. PT REPORTS LIVING AT HOME DEPENDENT UPON SPOUSE WHO TAKES CARE OF HIS MEDICINES, COOKING AND PERSONAL BUSINESS. PT REPORTS HAVING DEMENTIA AND DOES NOT DRIVE, HE GOES TO [facility] BUT CANNOT REMEMBER HOW MANY DAYS PER WEEK HE GOES OR FOR HOW LONG. PT REPORTS HAVING A CANE AND WALKER WITH NO MEDICAL EQUIPMENT PROVIDER. PT REPORTS HAVING NO OUTSIDE ASSISTANCE OTHER THAN HIS , DAUGHTER AND SON IN LAW. CM DISCUSSED REHAB OPTIONS AND [facility] HOME PLACEMENT; CM DISCUSSED COUNTER INTELLIGENCE TECHNICIAN CARE PLACEMENT. PT IS NOT INTERESTED IN COUNTER INTELLIGENCE TECHNICIAN CARE PLACEMENT AND WOULD LIKE TO GO HOME BUT THINKS HE CAN USE REHAB; PT REPORTS BEING WEAK IN HIS LEFT LEG AND HAS HAD LOTS OF FALLS RECENTLY. PT IS WILLING FOR REHAB IF CM CAN ARRANGE IT. CM DISCUSSED INPATIENT REHAB LOCATIONS AND OPTIONS WELL SNF OPTIONS. PT STATES EITHER INPATIENT REHAB WOULD BE OK AND IF HE HAS TO GO TO A USP, HE WANTS TO GO TO [place] IT IS CLOSE TO HIS HOUSE. PT REPORTS HIS IS AT THE OTHER HOSPITAL AND TO CALL HER FOR WHAT TO DO FOR HIM. CM CALLED AND SPOKE TO SHANNAN OF [facility] INPATIENT REH[facility] WHO REVIEWED PT'S INFORMATION AND CONCLUDED THAT PT DOES NOT MEET CRITERIA FOR INPATIENT REHAB, RECOMMENDED SNF REHAB. CM RECEIVED THE DAUGHTER'S PHONE NUMBER FROM BEDSIDE NURSE, CALLED KIMBERLY CONTRERAS, DAUGHTER, ; KIMBERLY REPORTS PT'S SPOUSE IS IN ICU AT [facility]; THEY CANNOT CARE FOR PT AT HOME NOW AND HE NEEDS REHAB. CM EXPLAINED OBSERVATION STATUS, THAT INSURANCE WILL NOT PAY FOR [facility] REHAB WITHOUT THE THREE MIDNIGHT STAYS INPATIENT IN THE LAST 30 DAYS. CM INFORMED DAUGHTER THAT MEDICARE NOR BLUE CROSS SUPPLEMENT WILL PAY FOR HOME CARE. CM DISCUSSED PRIVATE SITTER AT HOSPITAL, PRIVATE DUTY CARE AT HOME, PRIVATE PAY [facility] FACILITY AND LACK OF QUALIFICATION FOR INPATIENT REHAB. PT'S DAUGHTER REPORTED THAT HER PARENTS COULD NOT AFFORD PRIVATE PAY CARE AT HOME OR USP AND ASKED WHAT WOULD HAPPEN IF THEY COULD NOT TAKE CARE OF PT AT HOME OR COULD NOT [facility]ERO PT. CM EXPLAINED THE PROCESS OF ADULT PROTECTIVE SERVICES. PT'S DAUGHTER INFORMED CM THAT HE WAS INSENSITIVE AND ASKED IF CM HAD PARENTS; CM STATED THAT AT ONE TIME, HE DID. CM STATED THAT HE WAS SORRY THAT SHE WAS HAVING TO DEAL WITH HER MOM IN ICU AND HER FATHER HERE AND HAVING TO WORK ON FINDING CARE FOR HIM. DAUGHTER STATES SHE IS BUSY CARE STAFF ARE IN WITH HER MOTHER AND SHE WILL CALL CM BACK. DAUGHTER ASKED IF SHE SHOULD CALL MEDICARE HERSELF, CM INFORMED DAUGHTER THAT SHE CAN CALL MEDICARE AT ANY TIME. DAUGHTER DIRECTED CM TO CALL INPATIENT REHAB AGAIN, SHE WANTS TO KNOW WHAT DIAGNOSIS ARE QUALIFIED FOR INPATIENT REHAB AND FOR CM TO SEE WHY PT DOES NOT QUALIFY FOR INPATIENT REHAB. PT'S DAUGHTER REPORTS SHE CANNOT BELIVE THAT HER PARENTS HAVE PAID MEDICARE AND BLUE CROSS ALL OF THESE YEARS AND CANNOT GET REHAB AND CARE WHEN NEEDED. CM EXPLAINED MEDICAID QUALIFICATION AND LIMITED IN HOME AND CUSTODIAL CARE SERVICES AVAILABLE WITH MEDICAID. DAUGHTER REPORTS SHE WILL CALL CM BACK AND TO CHECK WITH INPATIENT REHAB AGAIN. CM CALLED [facility] INPAT[facility], SPOKE TO SHANNAN WHO REVIEWED PT'S CHART AND CONCLUDED AGAIN THAT PT DOES NOT MEET CRITERIA FOR INPATIENT REHAB. CM LATER RECEIVED CALL BACK FROM KIMBERLY CONTRERAS WHO DIRECTED CM TO SEND REFERRAL FOR INPATIENT REHAB TO [facility] INPAT[facility]. CM CALLED [facility], , SPOKE TO PADMINI AND PROVIDED REFERRAL INFORMATION. CM FAXED REFERRAL TO [phone]. PADMINI WILL COME AND VISIT PT AND EVALUATE PT ON 05-16-17 FOR INPATIENT REHAB ADMISSION AT [facility]. CM WAITING SCREENING AND ADMISSION DETERMINATION FROM [facility] IN PATIENT REHAB. Draw Tender: Robert Herrmann
[2017-05-15 19:00] VITALS: BP 101/50
[2017-05-16] VITALS: BP 125/62
--- NOTE | 2017-05-16 02:53 | NUR ---
CALL LIGHT IN REACH, WILL CONTINUE WITH PLAN OF CARE.
[2017-05-16 04:00] VITALS: BP 119/62
[2017-05-16 05:31] LABS: BASOPHILS 0.2 % (0-2); HEMATOCRIT 34.9 % (42.0-54.0); HEMOGLOBIN 11.2 g/dL (13.5-17.5); IMMATURE GRANULOCYTES 0.2 % (0-5); MCH 29.6 pg (26.0-34.0); MCHC 32.1 g/dL (31.0-37.0); MCV 92.3 fL (80.0-100.0); MEAN PLATELET VOLUME 9.4 fL (7.4-10.4); MONOCYTES 6.8 % (2-11); NEUTROPHILS 51.8 % (40-80); PLATELET COUNT 143 10x3/uL (130-400); RBC 3.78 10x6/uL (4.20-6.10); RDW 13.5 % (11.5-14.5); WBC 5.4 10x3/uL (4.8-10.8)
[2017-05-16 05:43] LABS: ANION GAP 11.3 mmol/L (8-16); CALCIUM 8.7 mg/dL (8.5-10.1); CARBON DIOXIDE 27.4 mmol/L (21.0-32.0); CREATININE - SERUM 1.3 mg/dL (0.6-1.3); POTASSIUM - SERUM 3.7 mmol/L (3.5-5.1)
[2017-05-16 08:00] VITALS: BP 128/76
--- NOTE | 2017-05-16 09:05 | ST ---
PATIENT:AVE CONTRERAS MEDICAL RECORD: [id number] SEX: M LOCATION:D. D.211 ORDER #: ADMISSION DATE: 05/13/17 AGE OF PATIENT: 81 REFERRING PHYSICIAN: INTERPRETING PHYSICIAN: ELIZABETH BETHEA MD DATE OF SERVICE: 05/15/2017 Nuclear Stress Test PROCEDURE: The patient underwent a standard Lexiscan stress test where at rest he was injected with 12.5 mCi of sestamibi in the right wrist at 0645 hours. The patient then later underwent a standard Lexiscan infusion stress test with 31.1 mCi of sestamibi injected as the tracer at stress 8:30 a.m. The patient tolerated the procedure without any complications. FINDINGS: The patient has preserved LV systolic function with ejection fraction of 65%. There is no evidence of significant ischemia or LV dysfunction. This is a negative stress test. TRANSINT:[id number] Voice Confirmation ID: [id number] DOCUMENT ID: [id number] ELIZABETH BETHEA MD at 0905 CC: [id number] DICTATION DATE: 05/15/17 1123 LEAN SPECIALIST: 05/16/17 0227 ADM IN [facility] [address] [place] [address]
[2017-05-16 12:00] VITALS: BP 139/76
[2017-05-16] MEDS ORDERED: ASPIRIN81 MG PO (14:38)
--- NOTE | 2017-05-16 16:20 | NUR ---
Patient Name: AVE CONTRERAS Encounter No: [id number] : 1935 Primary Insurance: MEDICARE A & B Anticipated DC Date: 05-16-2017 Planned Disposition: HOME WITH HOME HEALTH External Planned Provider: [facility] DCP follow-up note: CM RECEIVED REQUEST TO SEE NURA, MAMMALOGY TEACHER IN HER OFFICE, WHO WAS SPEAKING TO PT'S DAUGHTER, KIMBERLY, VIA PHONE. CM MET WITH NURA WHO WAS ON THE PHONE WITH KIMBERLY. AFTER EXTENSIVE CONVERSATION, KIMBERLY REPORTED PLAN FOR PT TO GO HOME TODAY AND WILL COME TO HER HOME; PT'S SON IN LAW WILL PICK HIM UP TODAY. [employer] ACCEPTED OFFER OF HOME HEALTH, REQUESTED SAME COMPANY PT'S LAST ADMIT ON NOVEMBER 18, 2016. CM REVIEWED CHART, LOCATED LAST ADMIT AND HOME HEALTH OF [facility]. CHOICE LETTER COMPLETED. CM CALLED [facility] [phone], PROVIDED REFERRAL TO [facility] WHO WILL PLACE PT ON FIRST AVAILABLE ADMIT DATE OF MONDAY OF THIS WEEK. CM FAXED REFERRAL TO [facility] AT [phone]. SENIOR UI DEVELOPER NOTIFIED. PT'S FAMILY CALLED STUDENT RECORDS COORDINATOR WHO ADVISED FAMILY THAT PT IS NOW READY TO GO, FAMILY ON THE WAY TO CUST[employer] BOW [employer]KER PT. CM NOTIFIED PT WHO WAS HAPPY TO BE ABLE TO GO HOME WITH HIS DAUGHTER AND SON IN LAW. Robert Herrmann, CASE MANAGEMENT
--- NOTE | 2017-05-16 17:27 | NUR ---
CONFUSED. REFUSE TO STAY IN ROOM. SON IN LAW ARRIVES FOR DISCHARGE. REFUSE DISCHARGE INSTRUCTIONS. DEMANDS TO BRING TO [facility] FOR TRANSPORT. ESCORT TO RIDE VIA WHEELCHAIR. REMAINS FREE FROM INJURY.
== END 2017-05-16 17:28 | disposition home health service (06) ==
LOC: D.ER 18:45 → OBSVTIME 21:21 → D.M2 21:21
PROVIDERS: Emergency Medicine; Family Medicine; Family Medicine Adult Medicine; ADMIT Emergency Medicine
DX: R07.89 Other chest pain (principal); I10 Essential (primary) hypertension; I25.10 Atherosclerotic heart disease of native coronary artery without angina pectoris; Z95.5 Presence of coronary angioplasty implant and graft; Z95.1 Presence of aortocoronary bypass graft; E11.65 Type 2 diabetes mellitus with hyperglycemia; K21.9 Gastro-esophageal reflux disease without esophagitis; Z87.891 Personal history of nicotine dependence; F03.90 Unspecified dementia, unspecified severity, without behavioral disturbance, psychotic disturbance, mood disturbance, and anxiety; R41.0 Disorientation, unspecified

== ENCOUNTER → 2017-07-12 17:03 | Outpatient (CLI) | payer MEDICARE, BC ==
[2017-05-13 22:28] VITALS: BMI 25.1
[~2017-07-12 17:03] MED LIST changes: +ASPIRIN81 MG PO; +ATIVAN0.5 MG PO; +DESERYL100 MG PO
[2017-07-12 19:00] LABS: BASOPHILS 0.2 % (0-2); EOSINOPHILS 3.1 % (0-7); HEMATOCRIT 44.8 % (42.0-54.0); IMMATURE GRANULOCYTES 0.2 % (0-5); LYMPHOCYTES 19.1 % (15-50); MCH 30.2 pg (26.0-34.0); MCHC 33.5 g/dL (31.0-37.0); MCV 90.3 fL (80.0-100.0); MEAN PLATELET VOLUME 10.1 fL (7.4-10.4); MONOCYTES 6.8 % (2-11); NEUTROPHILS 70.6 % (40-80); RBC 4.96 10x6/uL (4.20-6.10); RDW 12.8 % (11.5-14.5); WBC 12.5 10x3/uL (4.8-10.8)
[2017-07-12 19:03] LABS: PLATELET COUNT 276 10x3/uL (130-400)
[2017-07-12 19:09] LABS: APPEARANCE HAZY (CLEAR); COLOR YELLOW (YELLOW)
[2017-07-12 19:10] LABS: BACTERIA MANY /hpf (NONE SEEN); BILIRUBIN NEGATIVE (NEGATIVE); GLUCOSE NEGATIVE (NEGATIVE); KETONE NEGATIVE (NEGATIVE); MUCUS <1+ /lpf (NONE SEEN); NITRITE NEGATIVE (NEGATIVE); PROTEIN 1+ mg/dL (NEGATIVE); RED CELLS - URINE OCC /hpf (0-5); SPECIFIC GRAVITY 1.005 (1.005-1.020); UROBILINOGEN NORMAL (NORMAL); WHITE CELLS - URINE 25-50 /hpf (0-5)
[2017-07-12 19:11] LABS: ALBUMIN 3.5 g/dL (3.4-5.0); ALKALINE PHOSPHATASE 79 U/L (46-116); ALT (SGPT) 44 U/L (10-68); CALC OSMOLALITY 278 mosm/kg (275-300); CALCIUM 9.4 mg/dL (8.5-10.1); CARBON DIOXIDE 23.4 mmol/L (21.0-32.0); CHLORIDE - SERUM 100 mmol/L (98-107); GLUCOSE 114 mg/dL (74-106); POTASSIUM - SERUM 4.4 mmol/L (3.5-5.1); PROTEIN - SERUM 7.4 g/dL (6.4-8.2); SODIUM 137 mmol/L (136-145); UREA NITROGEN 24 mg/dL (7-18); eGFR NON AFRICAN AMERICAN 76 mL/min (90-120)
== END | disposition home or self-care (01) ==
LOC: D.LABREF 17:03
PROVIDERS: Family Medicine
DX: E11.65 Type 2 diabetes mellitus with hyperglycemia (principal); F03.90 Unspecified dementia, unspecified severity, without behavioral disturbance, psychotic disturbance, mood disturbance, and anxiety; I25.119 Atherosclerotic heart disease of native coronary artery with unspecified angina pectoris

== ENCOUNTER → 2017-07-15 19:26 | Outpatient (CLI) | payer MEDICARE, BC ==
[2017-05-13 22:28] VITALS: BMI 25.1
== END | disposition home or self-care (01) ==
LOC: D.LABREF 19:26
DX: R19.7 Diarrhea, unspecified (principal)